=== PATIENT | female | born 1990 | race Hispanic/Latino ===

== ENCOUNTER 2022-10-04 19:57 | Emergency (ER) | payer OTHER ==
[~2022-10-04] VITALS: Ht 157.5 cm; Wt 65.8 kg
[2022-10-04] MEDS ORDERED: IBUPROFEN600 MG PO (21:55)
== END 2022-10-04 22:58 | disposition home or self-care (01) ==
LOC: FSED 20:10
DX: S20.211A Contusion of right front wall of thorax, initial encounter (principal); W18.39XA Other fall on same level, initial encounter; Y92.89 Other specified places as the place of occurrence of the external cause
CPT/HCPCS: 71101; 99283

== ENCOUNTER 2025-03-21 10:59 | Emergency (ER) | payer SELFPAY ==
[~2025-03-21] VITALS: Ht 157.5 cm; Wt 7.5 kg
[~2025-03-21 10:59] MED LIST: CLEOCIN HCL300 MG PO; DICYCLOMINE HCL20 MG PO; IBUPROFEN600 MG PO; ITRACONAZOLE100 MG PO; OMEPRAZOLE40 MG PO; ONDANSETRON ODT4 MG PO
[2025-03-21 11:15] VITALS: PULSE 75; RESP 18; TEMP 98.3; O2SAT 97
[2025-03-21] MEDS ORDERED: MACROBID 100 M100 MG PO (11:41)
[2025-03-21] MEDS ORDERED: PYRIDIUM200 MG PO (11:41)
== END 2025-03-21 11:50 | disposition home or self-care (01) ==
LOC: FSED 11:07
DX: R30.0 Dysuria (principal); N39.0 Urinary tract infection, site not specified; R10.20 Pelvic and perineal pain unspecified side
CPT/HCPCS: 81003; 81025; 99283